=== PATIENT | male | born 1965 ===

== ENCOUNTER 2025-08-04 08:16 | Observation (INO) ==
--- NOTE | 2025-07-27 14:32 | Anesthesiology Consultation ---
Date of Service July 27, 2025 Assessment & Plan (1) Encounter for pre-operative examination: - Per leather stitcher on 07/27/25: No known infectious disease contacts, current infectious disease symptoms in past 10 days or COVID positive test result in the past 30 days. Chart Review Chart Review: Acceptable Risk for Surgery and Patient NOT seen in Pre Admission Testing History Surgery Operation Date: 08/04/25 11:10 Proposed Procedures p TURP (Transurethral Resection of Prostate) - Matt Martinez MD Height/Weight Height: 6 ft 4 in Weight: 92.079 kg Allergies Allergy/AdvReac Type Severity Reaction Status Date / Time No Known Allergies Allergy Verified 07/27/25 13:48 Medications Home Medications Medication Instructions Recorded Confirmed Last Taken ciprofloxacin HCl 500 mg tablet 500 mg PO BID 07/06/25 07/27/25 Unknown tamsulosin 0.4 mg capsule (Flomax) 0.4 mg PO DAILY 07/06/25 07/27/25 Unknown ferrous sulfate 325 mg (65 mg 325 mg PO DAILY 07/27/25 07/27/25 Unknown iron) tablet (Iron (ferrous sulfate)) multivitamin 1 tab PO DAILY 07/27/25 07/27/25 Unknown Past Medical History Medical History (Updated 07/27/25 @ 14:29 by Nithya Herrera PA-C) Enlarged prostate with urinary retention Past Surgical History Surgical History History of tooth extraction Hx of hernia repair inguinal area x3 Social History Smoking Status: Former smoker Do You Dip or Chew Tobacco: No Smoking End Date: just as teen on rare occ. Hx Alcohol Use: Yes Alcohol type: wine alcohol intake frequency: holidays/special occasions only Hx Substance Use: No substance use type: does not use Lab Results Anesthesia Preop Results Results Anesthesia Widget: WBC 8.00 K/ul (4.8-10.8) 07/06/25 Hgb 14.7 g/dL (14.0-18.0) 07/06/25 Hct 45.5 % (42.0-52.0) 07/06/25 Plt 338 K/uL (130-400) 07/06/25 Na 140 mmol/L (136-145) 07/06/25 K 4.1 mmol/L (3.5-5.1) 07/06/25 Cl 105 mmol/L (98-107) 07/06/25 CO2 27 mmol/L (21-32) 07/06/25 BUN 10 mg/dl (6-23) 07/06/25 Creat 1.07 mg/dl (0.6-1.4) 07/06/25 Glucose Level 84 mg/dl (70-99(Fasting)) 07/06/25 Testing Electrocardiogram Date: 07/06/25 NSR, rate 91 bpm Chest X-Ray Date: 07/06/25 Heart size and pulmonary vasculature are normal. Lungs are mildly hyperexpanded. No consolidation or pleural effusion seen. There is mild scarring in the lung apices. IMPRESSION: No acute findings.
[2025-08-04] MEDS: LR 15ML/HR IV SCH (09:03)
[2025-08-04] MEDS ORDERED: PROMETHAZINE HCL 6.25 MG in SODIUM CHLORIDE 0.9% 50 ML IV PRN (09:05)
[2025-08-04] MEDS ORDERED: ONDANSETRON INJ 2 MG/ML 2 ML VIAL IV PRN (09:05)
[2025-08-04] MEDS ORDERED: ATROPINE SULFATE 0.1 MG/ML 10ML SYR IV PRN (09:05)
[2025-08-04] MEDS ORDERED: DEXAMETHASONE SOD INJ 4 MG/ML VIAL ONE (09:31)
[2025-08-04] MEDS ORDERED: PROPOFOL IV EMULSION 10 MG/ML 20 ML VIAL IV ONE (09:31)
[2025-08-04] MEDS ORDERED: LIDOCAINE 2% 2 ML VIAL/AMP(20MG/ML) INFIL ONE (09:31)
[2025-08-04] MEDS ORDERED: ONDANSETRON INJ 2 MG/ML 2 ML VIAL ONE (09:31)
[2025-08-04] MEDS ORDERED: MIDAZOLAM HCL 1 MG/ML 2ML VIAL ONE (09:32)
--- NOTE | 2025-08-04 10:05 | History & Physical Bridge Note ---
Date of Service August 04, 2025 History & Physical Bridge Note I have examined the patient, reviewed the History & Physical and in the interval since the performance of the History & Physical I have noted the following changes of clinical significance: no changes noted
[2025-08-04] MEDS: cefTRIAXone SODIUM 2,000 MG MINI-B 50 ML IV SCH (10:22)
--- NOTE | 2025-08-04 11:22 | Operative Report ---
PG Post Operative Report Pre & Post Diagnosis Operation Date: 08/04/25 09:50 Pre-Op Diagnosis: Benign Prostatic Hyperplasia with Urinary retention Post-Op Diagnosis: Benign Prostatic Hyperplasia with Urinary Retention I identified the patient and participated in the time-out.: Yes Procedure Operation Date: 08/04/25 09:50 Actual Procedures p Transurethral Resection of Prostate(Not Applicable) - Matt Martinez MD Surgeon Matt Martinez MD Permastone Applicator na Estimated Blood Loss 20 Findings Consistent with Post-Op Diagnosis obstructing bilobar hyperplsia, uos distant from resection Specimens prostate chips Drains [address] catheter Description of Procedure SURGEON: Dr. Martinez FILM PROJECTOR OPERATOR: NA PREOPERATIVE DIAGNOSIS: Enlarged Prostate, urinary retention POSTOPERATIVE DIAGNOSIS: same PROCEDURE: Cystourethroscopy, transurethral resection of prostate FINDINGS: 1. bi -lobar prostate enlargement ANESTHESIA: general ESTIMATED BLOOD LOSS: 20 cc TUBES AND DRAINS: [address]ral catheter SPECIMENS: 1. Prostate chips COMPLICATIONS: none INDICATIONS FOR PROCEDURE: See preoperative diagnosis OPERATIVE DETAIL: The patient was prepped and draped in the usual fashion in the operating room. A well lubricated resectoscope was inserted into the urethral meatus using the visual obturator and advanced into the bladder. Care was taken to keep the lumen in the center of view. The prostatic urethra was identified including the verumontanum. This landmark was used as the distal limit of resection to protect the urinary sphincter. The prostate was enlarged with kissing lobes and bi -lobar prostate enlargement. It was noted to visually obstruct passage into the bladder. Upon entering the bladder the visual obturator was exchanged for the resectoscope loop, the bladder was partially filled. Urine wasclear and wasnot sent for cytology. The bladder was then evaluated in a panendoscopic fashion. There wereno mucosal lesions, no trabeculations, no diverticuli and small stone fragments which were evacuated. The left and right ureteral orifices were identified in the orthotopic positions. We then proceeded to resect the obstructing prostate tissue taking care to avoid advancing towards the ureteral orifices or distal to the verumontanum. Prostatic chips were evacuated using a linn syringe and adaptor and meticulous hemostasis was achieved. All parts of the cystoscope and all instruments were removed intact from the patient. A [address] catheter was placed with cbi at slow drip with 20 cc in the balloon. Urine was light pink The patient tolerated the procedure well. Please note thatI was present and performed all components of the procedure. I attest to the content of the Intraoperative Record and any orders documented therein. Any exceptions are noted below.
--- NOTE | 2025-08-04 11:50 | Anesthesiology Progress Note ---
Date of Service August 04, 2025 Anesthesia Post Procedure Vital Signs Vital Signs: Temp Pulse Pulse Resp BP BP Pulse Ox 08/04/25 11:45 74 16 146/89 H 100 08/04/25 11:35 67 16 130/83 100 08/04/25 11:25 36.4 C L 75 16 153/81 H 95 08/04/25 08:44 36.8 C 78 16 150/107 H 95 O2 Del Method O2 Flow Rate 08/04/25 11:45 Oxymask 4 08/04/25 11:35 Oxymask 6 08/04/25 11:25 Oxymask 6 08/04/25 08:44 Room Air Transfer of Care Handoff Completed per policy Notes Mental Status: alert / awake / arousable Patient Amnestic to Procedure: Yes Nausea / Vomiting: adequately controlled Pain: adequately controlled Airway Patency, RR, SpO2: stable & adequate BP & HR: stable & adequate Hydration State: stable & adequate Anesthetic Complications: no major complications apparent
[2025-08-04] MEDS ORDERED: ACETAMINOPHEN 325 MG TAB PO PRN (13:57)
[2025-08-04] MEDS ORDERED: IBUPROFEN 200 MG TAB PO PRN (13:57)
[2025-08-05] MEDS: MULTIVITAMIN TAB PO SCH (08:02)
[2025-08-05] MEDS: TAMSULOSIN HCL 0.4 MG CAP PO SCH (08:02)
[2025-08-05] MEDS: FERROUS SULFATE 325 MG TAB PO SCH (08:02)
[2025-08-05 08:31] VITALS: TEMP 97.7; O2SAT 94
--- NOTE | 2025-08-05 09:20 | Urology Progress Note ---
<Statement entered by Matt Martinez MD - 08/05/25 14:29> Chart reviewed plan reviewed and agree as written. Date of Service August 05, 2025 Assessment & Plan (1) Enlarged prostate with urinary retention: Plan: - Pt POD#1 s/p TURP with Dr. Martinez - Doing well, progressing as expected - Afebrile with stable vitals - Tolerating diet - 3 way Perry catheter intact, patent and draining clear urine with CBI on slow - CBI clamped at bedside - will reassess later this AM - Anticipate home with/without Perry catheter later today presuming urine appropriate and he continues to progress as expected - Expected clinical course reviewed, all questions answered - Will arrange outpatient follow-up with our service for voiding trial Admission and Anticipated Discharge Date Admission Date: August 04, 2025 Subjective Patient seen and examined at bedside. He is awake and alert, sitting up in bed. Perry draining clear urine with CBI on slow. CBI clamped at bedside. Denies fever, chills, or nausea. No pain. Review of Systems Constitutional: as per Subjective / HPI Genitourinary: + as per Subjective / HPI Physical Exam Constitutional: well developed and well nourished; no acute distress Respiratory: normal respiratory effort; no respiratory distress and no labored breathing Gastrointestinal (Abdomen): Inspection/Auscultation: abdomen normal to inspection Musculoskeletal: Head/Neck/Chest: normocephalic Neurologic: moves all extremities and awake Psychiatric: Orientation: alert and oriented x 3 Genitourinary: Perry draining clear urine with CBI on slow, CBI clamped at bedside. Results & Data Vital Signs (Past 12 Hours) Vital Signs Temp Pulse Pulse Resp BP BP Pulse Ox 08/05/25 07:55 36.5 C 70 15 140/96 94 08/05/25 03:00 36.6 C 100 H 16 131/66 92 08/04/25 23:00 36.8 C 80 16 130/76 94 O2 Del Method 08/05/25 07:55 Room Air 08/05/25 03:00 Room Air 08/04/25 23:00 Room Air PG Care Time/CCT Total # of Minutes Spent Total Time Spent with Patient: Total time spent is greater than 50% in coordination of care (as documented) at patient's floor/unit and/or counseling patient: Coding Level of Care Code None Diagnoses Enlarged prostate with urinary retention N40.1; R33.8
--- NOTE | 2025-08-05 10:22 | Discharge Summary ---
<Statement entered by Matt Martinez MD - 08/05/25 14:29> Chart reviewed plan reviewed and agree as written. Date of Service August 05, 2025 Admission HPI Per Admitting Provider Patient with BPH with obstruction here for transurethral resection of prostate Principal Diagnosis BPH with obstruction Discharge Exam Constitutional well developed and well nourished; no acute distress Respiratory normal respiratory effort; no respiratory distress and no labored breathing Gastrointestinal (Abdomen) Inspection/Auscultation: abdomen normal to inspection Musculoskeletal Head/Neck/Chest: normocephalic Neurologic moves all extremities and awake Psychiatric Orientation: alert and oriented x 3 Genitourinary Perry draining clear yellow with CBI clamped Discharge Data Allergies Allergy/AdvReac Type Severity Reaction Status Date / Time No Known Allergies Allergy Verified 08/04/25 08:42 Procedures Performed Operation Date: 08/04/25 09:50 Actual Procedures p Transurethral Resection of Prostate(Not Applicable) - Matt Martinez MD Hospital Course (1) Enlarged prostate with urinary retention: - Pt POD#1 s/p TURP with Dr. Martinez - Doing well, progressing as expected - Afebrile with stable vitals - Tolerating diet - 3 way Perry catheter intact, patent and draining clear urine with CBI on slow - CBI clamped at bedside - will reassess later this AM - Anticipate home with/without Perry catheter later today presuming urine appropriate and he continues to progress as expected - Expected clinical course reviewed, all questions answered - Will arrange outpatient follow-up with our service for voiding trial Total Time Total Time Spent Total Time Spent (In Minutes): 25 Discharge Plan Discharge Items Patient Disposition: Home - Self-Care Reason For Visit: BPH with Lower Urinary Tract Symptoms, Other Reten Discharge Diagnosis: BPH with lower urinary tract symptoms Activity: Per Instructions section Lifting: No more than 10 pounds Bathing Comment: Okay to shower after discharge Sexual Activity: Wait until after follow-up appointment Exercise/Sports: Wait until after follow-up appointment Non-emergency contact: Surgeon and Urologist Call non-emergency contact if: your pain is not controlled, you have a fever and your temperature is above 101 Follow-up/Referrals: Jan Venegas M.D. [Primary Care Provider] - Diet: Regular Addtl Attending Provider Instructions: Please take all medications as prescribed and keep all follow-ups as scheduled. Please call our office at [phone] with any questions, concerns or need to reschedule appointments for any reason. We are happy to assist you. Tips for your recovery at home: Dont be alarmed by brownish or reddish blood or clots in your urine. This is a result of the procedure. This may occur off and on for weeks to months after the procedure but should continue to improve. Drink plenty of fluids during the day (enough to keep your urine very light colored). This will help keep a healthy flow of urine. Do not lift >25 lbs until your followup Avoid constipation. Please use a stool softener (Colace) for the first two weeks after your procedure Be sure to finish the antibiotics as prescribed. If you go home with a catheter, please wash tubing where it enters your body twice daily with mild soap (Dove or Dial). Once your catheter is removed, expect some blood in your urine and some burning when you urinate. You should have an appointment to have this removed, if you do not please call our office to arrange. Pending Studies at Discharge: Yes Stand-Alone Forms: My [facility] LiquidText, Smoking Cessation Medications and DC Order Prescriptions: Continued levofloxacin 500 mg tablet 500 mg PO DAILY 14 Days Qty: 14 0RF tamsulosin [Flomax] 0.4 mg capsule 0.4 mg PO DAILY multivitamin Tablet 1 tab PO DAILY ferrous sulfate [Iron (ferrous sulfate)] 325 mg (65 mg iron) Tablet 325 mg PO DAILY Discharge Orders: Discharge Order (Routine); Ordered 08/05/25 Ordered By: Angy Whalen Admission Data Admit Date/Time: 08/04/25 11:23 Attending Provider: Matt Martinez Admit Provider: Matt Martinez Primary Care Provider: Jan Venegas Coding Level of Care Code 07967 IN/OBS DISCH 30 MIN/LESS Diagnoses Enlarged prostate with urinary retention N40.1; R33.8
[2025-08-05 11:25] VITALS: BP 142/88; PULSE 72; RESP 16
== END 2025-08-05 12:09 | disposition home or self-care (01) ==
LOC: PACUINP 08:16 → ASU 08:16 → 3E 13:49